=== PATIENT | male | born 1960 | race Hispanic/Latino ===

== ENCOUNTER → 2024-11-10 | Outpatient (CLI) | payer OTHER ==
[~2024-11-10] MED LIST: IOHEXOL 350 MG/ML 100ML INFUS..BTL IV ONE; metoPROLOL tartRATE 1 MG/ML 5ML VIAL IV ONE
--- NOTE | 2024-11-11 12:58 | HMCIMG ---
CT OF THE CHEST WITH CONTRAST- CT Cardiac Angio co-interpretation This is done as part of the CT cardiac angiogram study. The interpretation of the coronary arteries will be done by senior field service engineer in a separate report. History: over-read Comparison: none CT Dose Index (CTDI): 77.90 mGy Dose Length Product (DLP): 493.40 total mGy PROTOCOL: Examination is done at 2.5 millimeter volumetric acquisition after contrast administration with Isovue 370, 100 cc IV, without complications. Photography is done at 5 millimeter thick intervals for the thorax. The examination begins above the heart and therefore the lung apices are incompletely included. The rest of the left lung is included but the right lung is only included up to its middle third. The periphery of the right lung is not included in the study. FINDINGS: The visualized part of the airway is preserved. The bony and soft tissue structures of the chest wall are unremarkable. The aorta is unremarkable. No mediastinal lymphadenopathy is seen. The lung windows demonstrate no worrisome pulmonary nodules, masses or infiltrates. There is no evidence of pulmonary embolism in the visualized lung segments. The upper abdominal views are unremarkable. Impression: No significant abnormalities identified.
== END | disposition home or self-care (01) ==
LOC: RAH 11:31
PROVIDERS: ATTEND Internal Medicine Cardiovascular Disease
DX: I20.9 Angina pectoris, unspecified (principal)
CPT/HCPCS: 75574; J3490 ×2; Q9967

== ENCOUNTER 2024-12-25 09:17 | Day surgery (SDC) | payer OTHER ==
[2024-12-23 10:02] LABS: BASOPHILS # (AUTO) 0.04 K/uL (0.00-0.20); BASOPHILS % (AUTO) 0.8 % (0.0-5.0); EOSINOPHILS # (AUTO) 0.09 K/uL (0.00-0.70); EOSINOPHILS % (AUTO) 1.7 % (0.0-8.0); IMMATURE GRANULOCYTE ABSOLUTE 0.01 K/uL (0-1); LYMPHOCYTES # (AUTO) 1.7 K/uL (1.0-4.8); LYMPHOCYTES % (AUTO) 32.9 % (21.0-51.0); MEAN CORPUSCULAR HEMOGLOBIN 29.1 pg (27.0-33.0); MEAN CORPUSCULAR HGB CONC 32.9 g/dL (32.0-36.0); MEAN CORPUSCULAR VOLUME 88.4 fL (79-99); MONOCYTES # (AUTO) 0.5 K/uL (0.1-1.0); MONOCYTES % (AUTO) 9.4 % (3.0-13.0); NEUTROPHILS # (AUTO) 2.9 K/uL (1.8-7.7); PLATELET COUNT (AUTO) 142 K/uL (130-400); RED BLOOD CELL COUNT(AUTO) 4.75 MIL/uL (4.50-6.20); RED CELL DISTRIBUTION WIDTH 14.1 % (11.0-15.5); WHITE BLOOD COUNT (AUTO) 5.2 K/uL (4.8-10.8)
[2024-12-23 10:08] LABS: POTASSIUM 5.1 mmol/L (3.5-5.1)
[2024-12-23 10:11] VITALS: BP 160/90; PULSE 64; RESP 18; TEMP 97.3
[2024-12-23 10:11] LABS: INR 1.07 (0.85-1.15); PROTHROMBIN TIME 11.3 SEC (9.6-11.6)
[2024-12-23 10:12] LABS: PARTIAL THROMBOPLASTIN TIME 28.5 SEC (26.3-35.5)
--- NOTE | 2024-12-23 10:28 | EKG ---
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
--- NOTE | 2024-12-23 11:42 | HMCIMG ---
CHEST 1VW HISTORY: Preop COMPARISON: None FINDINGS: A frontal projection of the chest was obtained. No acute pulmonary infiltrates is seen. The heart is borderline enlarged. No evidence of aortic calcification is seen. IMPRESSION: 1. No acute pulmonary infiltrate is seen.
[2024-12-25] VITALS (8 sets, daily range): BP systolic 106–146; BP diastolic 65–86; PULSE 58–72; RESP 12–19; TEMP 97.4
[~2024-12-25] VITALS: Ht 170.2 cm; Wt 89.4 kg
[~2024-12-25 09:17] MED LIST changes: +ASPI-1443 PO; +DORZ10DR10 OP; -IOHEXOL 350 MG/ML 100ML INFUS..BTL IV ONE; +ISOS30TA92 PO; +LINA5TAB PO; +LOSA50TA64 PO; +METF-444 PO; +METO-391 PO; +PRAV40TA3 PO; +TRAV2.5D6 OP; -metoPROLOL tartRATE 1 MG/ML 5ML VIAL IV ONE
[2024-12-25] MEDS ORDERED: LIDOCAINE HCL 400MG/20ML VIAL ONE (12:29)
[2024-12-25] MEDS ORDERED: NITROGLYCERIN 50MG VIAL ONE (12:30)
[2024-12-25] MEDS ORDERED: HEParin 10,000 UNIT/10ML (1,000 UNIT/ML) VIAL ONE (12:30)
[2024-12-25] MEDS ORDERED: HEParin-NS 1,000 UNIT/500 ML 1,000 ML IV ONE (12:30)
[2024-12-25] MEDS ORDERED: IOHEXOL 350 MG/ML 100ML INFUS..BTL IV ONE (12:30)
[2024-12-25] MEDS ORDERED: FENTanyl CITRate PF 50 MCG/1 ML 2ML VIAL ONE (14:27)
[2024-12-25] MEDS ORDERED: MIDAZOLAM HCL 1 MG/ML 2ML VIAL ONE ×2 (14:27→14:55)
[2024-12-25] MEDS ORDERED: BIVALIRUDIN 250 MG/VIAL IV ONE (14:30)
[2024-12-25] MEDS ORDERED: DEXTROSE 50%-WATER 50 ML DISP.SYRIN IV PRN (15:30)
[2024-12-25] MEDS ORDERED: NITROGLYCERIN 0.4 MG SL TAB SL PRN (15:30)
[2024-12-25] MEDS ORDERED: 0.9%NACL 1000ML 1,000 ML IV SCH (15:30)
[2024-12-25] MEDS ORDERED: metoPROLOL tartRATE 1 MG/ML 5ML VIAL IV PRN (15:30)
[2024-12-25] MEDS ORDERED: GLUCAGON 1MG KIT 1 MG ML IM PRN (15:30)
[2024-12-25] MEDS ORDERED: hydrALAZine 20MG/ML VIAL IV PRN (15:30)
--- NOTE | 2024-12-25 15:39 | PRN ---
Left Heart Cath-[facility] PROCEDURE: 1. Right common femoral arterial sheath placement. 2. Selective coronary angiogram. 3. Left heart catheterization. 4. Left ventriculogram. 5. Conscious sedation 6. Right common femoral vein sheath placement 7 English 7. Right heart catheterization with O2 saturations and pressure measurements 8. Vascade closure system for venous access and Mynx closure system for arteriotomy access INDICATIONS: Class 2 angina Abnormal stress test Abnormal coronary CT angiography Dyspnea on exertion DESCRIPTION OF PROCEDURE: The patient was brought to the catheterization suite and prepped and draped in sterile fashion. An IV was started, if not already in place and both groins were exposed for arterial access. 1% lidocaine was used for local anesthesia and then a micropuncture kit was used to gain access and once free-flowing blood was seen, modified Seldinger technique was utilized to place a 6 English sheath into the right common femoral artery. Same technique was utilized to place a 7 English sheath into the right common femoral vein. Next, preformed JL4 and JR4 Catheters were then used to selectively engage the [place] coronary vessels and multiple hand contrast injections were performed in different views to define the coronary anatomy. Six English angled pigtail was then used across aortic valve and right heart catheterization was used with a 7.5 balloon tipped [place]-Darian catheter with O2 saturation run pressure measurements obtained. Simultaneous wedge and LVEDP were obtained. Cardiac outputs were obtained. At end of case Vascade system was used for closur of venous access and a Mynx closure system was used for closure of arterial access. No complications occurred. FINDINGS: It should be noted that all vessels from left main to proximal mid LAD circ as well as proximal mid and distal RCA were severely calcified The left main artery bifurcates into the LAD and left circumflex with a calcified concentric lesion in the mid section of the left main at 50%. The proximal LAD had 30-50% stenosis present with a mid LAD lesion after diagonal branch 1. Of 70-85%. Past diagonal branch 2. There was 70-80% stenosis and diffuse disease noted in the apical LAD. Diagonal branch 1. Had an ostial stenosis of 75-80% and was calcified the floor it then bifurcated in the mid section med into a inferior and superior branch. The superior branch of diagonal branch 1. Had a 80-85% stenosis present. The left circumflex in its mid segment had a stenosis of 85% and it should be noted that diagonal branch 1. Is a large caliber vessel from relative standpoint and had an ostial stenosis of 75%. The right coronary artery was a large dominant vessel wrapping around towards the anterior apex with a 60-70% stenosis noted in its mid segment a 70% stenosis noted in its distal segment and an 85-90% stenosis noted of the ostial PDA. Ejection fraction was noted to be 60% MERRITT was noted to be patent as was subclavian artery There was no evidence of aortic stenosis or mitral regurgitation Right heart catheterization revealed no evidence of step-up or step-down with the O2 saturation run there was no evidence of pulmonary hypertension. LVEDP and wedge were elevated. Cardiac output by thermodilution was only measured at 3.05 L/min and by Alejandro at 3.93 L/min ELIA BRAMBILA MD December 25, 2024 15:39
[2024-12-25] MEDS ORDERED: INSULIN humuLIN R 100 UNIT/ML 3ML SQ SCH (16:30)
--- NOTE | 2024-12-25 16:30 | NUR ---
RE: HANDOFF REPORT HANDOFF REPORT RECEIVED FROM ROSALES RAMOS AT PATIENT BEDSIDE USING SBAR. S/P LHC, DRESSING TO RIGHT GROIN DRY/INTACT. NO BLEEDING OR HEMATOMA NOTED. DAUGHTER AT BEDSIDE.
--- NOTE | 2024-12-25 19:59 | NUR ---
PATIENT DISCHARGED FROM FACILITY VIA WHEELCHAIR BY NURSE AND ASSISTED INTO PRIVATE VEHICLE DRIVEN BY DAUGHTER
== END 2024-12-25 19:58 | disposition home or self-care (01) ==
LOC: DAH 09:17
PROVIDERS: ATTEND Internal Medicine Cardiovascular Disease
DX: R94.39 Abnormal result of other cardiovascular function study (principal); I25.84 Coronary atherosclerosis due to calcified coronary lesion; I25.110 Atherosclerotic heart disease of native coronary artery with unstable angina pectoris; R06.09 Other forms of dyspnea; R93.1 Abnormal findings on diagnostic imaging of heart and coronary circulation; I10 Essential (primary) hypertension; E78.00 Pure hypercholesterolemia, unspecified; E11.9 Type 2 diabetes mellitus without complications; Z79.01 Long term (current) use of anticoagulants; Z79.899 Other long term (current) drug therapy; Z98.890 Other specified postprocedural states; Z83.3 Family history of diabetes mellitus
CPT/HCPCS: 80048; 85025; 85610; 85730; 36415; 71045; 93005; 93460; 82948; C1894 ×3; C1760 ×2; Q9965; J3010; J3490 ×2; J1644 ×2; J2250; Q9967; A4215; A4222; A4221; A4663; A4216; A4606; A4223 ×3; 99156; 99157; J0583